=== PATIENT | male | born 1935 | race Caucasian/White ===

== ENCOUNTER → 2019-01-01 | Outpatient (CLI) | payer MEDICARE | END | disposition home or self-care (01) | LOC: RAH 10:45 | PROVIDERS: ATTEND Physical Medicine & Rehabilitation | DX: M51.36 Other intervertebral disc degeneration, lumbar region (principal); M46.96 Unspecified inflammatory spondylopathy, lumbar region; M48.061 Spinal stenosis, lumbar region without neurogenic claudication; M41.85 Other forms of scoliosis, thoracolumbar region | CPT/HCPCS: 72131 ==

== ENCOUNTER → 2020-05-05 | Outpatient (CLI) | payer MEDICARE | END | disposition home or self-care (01) | LOC: OIH 10:58 | PROVIDERS: ATTEND Internal Medicine | DX: M25.474 Effusion, right foot (principal); L03.031 Cellulitis of right toe; M20.11 Hallux valgus (acquired), right foot | CPT/HCPCS: 73660 ==

== ENCOUNTER → 2020-11-20 | Outpatient (CLI) | payer MEDICARE | END | disposition home or self-care (01) | LOC: RAH 14:23 | PROVIDERS: ATTEND Physical Medicine & Rehabilitation | DX: M19.011 Primary osteoarthritis, right shoulder (principal) | CPT/HCPCS: 73030 ==

== ENCOUNTER → 2021-05-04 | Outpatient (CLI) | payer MEDICARE | END | disposition home or self-care (01) | LOC: RAH 14:48 | PROVIDERS: ATTEND Physical Medicine & Rehabilitation | DX: M47.812 Spondylosis without myelopathy or radiculopathy, cervical region (principal); M48.02 Spinal stenosis, cervical region | CPT/HCPCS: 72125 ==

== ENCOUNTER 2023-05-02 14:20 | Observation (INO) | payer MEDICARE ==
[~2023-05-02] VITALS: Ht 170.2 cm; Wt 77.1 kg
[~2023-05-02 14:20] MED LIST: ALLO300T2 PO; APIX5TAB PO; ATOR40TA71 PO; BETH25 PO; CARV25TA PO; CHOL100020 PO; CYAN1000I IM; DIGO50SO2 PO; FERS325 PO; FOLI0.4T6 PO; FURO80TA87 PO; LEVO25CA4 PO; METO5TAB7 PO; MONT-39 PO; PANT40TA54 PO; POTA99CA PO; VENL-191 PO; VIT1CAPS5 PO; ZONI100C87 PO
[2023-05-02 15:00] LABS: BASOPHILS % (AUTO) 0.6 % (0.0-5.0); EOSINOPHILS % (AUTO) 2.5 % (0.0-8.0); LYMPHOCYTES % (AUTO) 7.5 % (21.0-51.0); MEAN CORPUSCULAR HEMOGLOBIN 32.7 pg (27.0-33.0); MEAN CORPUSCULAR HGB CONC 30.5 g/dL (32.0-36.0); MEAN CORPUSCULAR VOLUME 107.3 fL (79-99); MONOCYTES % (AUTO) 8.6 % (3.0-13.0); NEUTROPHILS % (AUTO) 80.2 % (40.0-77.0); PLATELET COUNT (AUTO) 155 K/uL (130-400); RED BLOOD CELL COUNT(AUTO) 2.05 MIL/uL (4.50-6.20); WHITE BLOOD COUNT (AUTO) 7.2 K/uL (4.8-10.8)
[2023-05-02 15:17] LABS: CREATININE 1.4 mg/dL (0.5-1.5); POTASSIUM 3.9 mmol/L (3.5-5.1)
[2023-05-02 15:24] LABS: ALBUMIN 2.9 g/dL (3.5-5.0); TOTAL PROTEIN, SERUM 6.3 g/dL (6.0-8.3)
[2023-05-02] MEDS ORDERED: FERS325 PO (15:29)
[2023-05-02] MEDS ORDERED: POTASSIUM CHLORIDE 10% ELIXIR 20 MEQ/15 ML UDCUP PO PRN (15:30)
[2023-05-02] MEDS ORDERED: ACETAMINOPHEN 325 MG TAB PO PRN ×2 (15:30)
[2023-05-02] MEDS ORDERED: MAG/ALUM/SIMETH 30 ML UDCUP PO PRN (15:30)
[2023-05-02] MEDS ORDERED: POTASSIUM CHLORIDE 20MEQ/100ML 100 ML IV PRN ×2 (15:30)
[2023-05-02] MEDS ORDERED: LACTULOSE 20 GM/30 ML UDCUP PO PRN (15:30)
[2023-05-02] MEDS ORDERED: ALLOPURINOL 300 MG TABLET PO SCH (15:30)
[2023-05-02] MEDS ORDERED: ONDANSETRON 4MG INJ IV PRN (15:30)
[2023-05-02] MEDS ORDERED: FURO80TA87 PO (15:31)
[2023-05-02] MEDS ORDERED: DIGO125T71 PO (15:31)
[2023-05-02] MEDS ORDERED: POTA-364 PO (15:32)
[2023-05-02] MEDS ORDERED: ISOS10TA8 PO (15:33)
[2023-05-02] MEDS ORDERED: CILO100T3 PO (15:35)
[2023-05-02] MEDS ORDERED: HYDR-4153 PO (15:36)
[2023-05-02] MEDS ORDERED: THIA100T91 PO (15:36)
[2023-05-02] MEDS ORDERED: PYRI100L2 PO (15:37)
[2023-05-02] MEDS: BETHANECHOL CHLORIDE 25 MG TABLET PO SCH (19:18)
[2023-05-02] MEDS: FUROSEMIDE 80 MG TABLET PO SCH (19:18)
[2023-05-02] MEDS: HYDRALAZINE 25MG TABLET PO SCH (19:18)
[2023-05-02] MEDS: APIXABAN 5 MG TABLET PO SCH (19:21)
[2023-05-02] MEDS: CARVEDILOL 25 MG TABLET PO SCH (19:22)
[2023-05-02] MEDS: ISOSORBIDE MONONITRATE 20 MG TABLET PO SCH (20:33)
[2023-05-02] MEDS ORDERED: ISOSORBIDE MONONITRATE 10 MG PO SCH (21:00)
[2023-05-02] MEDS ORDERED: CILOSTAZOL 100 MG TAB PO SCH (21:00)
[2023-05-02] MEDS ORDERED: METOLAZONE 5 MG PO PRN (21:00)
[2023-05-02] MEDS ORDERED: ZONISAMIDE 100 MG CAP PO SCH (21:00)
[2023-05-02] MEDS ORDERED: VENLAFAXINE HCL 75 MG TAB PO SCH (21:00)
[2023-05-02 21:58] VITALS: O2SAT 94
[2023-05-02 22:05] VITALS: BP 119/65; PULSE 81; RESP 18
[2023-05-03 01:56] LABS: HEMATOCRIT 24.9 % (42-54); MEAN CORPUSCULAR HGB CONC 30.9 g/dL (32.0-36.0); MEAN CORPUSCULAR VOLUME 103.3 fL (79-99); RED BLOOD CELL COUNT(AUTO) 2.41 MIL/uL (4.50-6.20); WHITE BLOOD COUNT (AUTO) 8.3 K/uL (4.8-10.8)
[2023-05-03 02:09] LABS: CREATININE 1.6 mg/dL (0.5-1.5); POTASSIUM 3.3 mmol/L (3.5-5.1)
[2023-05-03 04:00] VITALS: BP 126/75; PULSE 71; RESP 17
[2023-05-03] MEDS ORDERED: LEVOTHYROXINE 50 MCG TABLET PO SCH (06:30)
[2023-05-03 08:00] VITALS: BP 122/65; PULSE 70; RESP 17
[2023-05-03] MEDS ORDERED: DIGOXIN 125 MCG TABLET PO SCH (09:00)
[2023-05-03] MEDS ORDERED: PANTOPRAZOLE 40 MG TAB DR PO SCH (09:00)
[2023-05-03] MEDS ORDERED: FERROUS SULFATE 325 MG TABLET.DR PO SCH (09:00)
[2023-05-03] MEDS ORDERED: NON-FORMULARY MEDICATION 1 EACH (Ferrous Sulfate 325 MG) PO SCH ×2 (09:00)
[2023-05-03] MEDS ORDERED: PYRIDOXINE HCL 50 MG TABLET PO SCH (09:00)
[2023-05-03] MEDS ORDERED: HOME MEDICATION 1 EACH PO SCH (09:00)
[2023-05-03] MEDS ORDERED: NON-FORMULARY MEDICATION 1 EACH (Levothyroxine Sodium (Levothyroxine) 50 MCG) PO SCH (09:00)
[2023-05-03] MEDS ORDERED: VENLAFAXINE HCL 75 MG TAB PO SCH (09:00)
[2023-05-03] MEDS ORDERED: PYRIDOXINE HCL 50 MG PO SCH (09:00)
[2023-05-03] MEDS ORDERED: FOLIC ACID 1000 MCG PO SCH (09:00)
[2023-05-03] MEDS ORDERED: THIAMINE HCL 100 MG TABLET PO SCH (09:00)
[2023-05-03] MEDS ORDERED: ATORVASTATIN 40 MG TABLET PO SCH (09:00)
[2023-05-03] MEDS: HYDRALAZINE 25MG TABLET PO SCH (10:19)
[2023-05-03] MEDS: BETHANECHOL CHLORIDE 25 MG TABLET PO SCH (10:21)
[2023-05-03] MEDS: ISOSORBIDE MONONITRATE 20 MG TABLET PO SCH (10:21)
[2023-05-03] MEDS: APIXABAN 5 MG TABLET PO SCH (10:22)
[2023-05-03] MEDS: CARVEDILOL 25 MG TABLET PO SCH (10:22)
[2023-05-03] MEDS: FUROSEMIDE 80 MG TABLET PO SCH (10:23)
[2023-05-03] MEDS: KCL 20 MEQ ERTAB PO PRN ×2 (10:26→12:40)
[2023-05-03 11:21] VITALS: PULSE 75
[2023-05-03 11:45] VITALS: BP 115/65; PULSE 70; RESP 18
[2023-06-01] MEDS ORDERED: CYANOCOBALAMIN (VITAMIN B-12) 1000 MCG/ML 1ML VIAL IM SCH (09:00)
== END 2023-05-03 13:15 | disposition home or self-care (01) ==
LOC: EDH 14:20 → DIRECT 14:21 → 4DH 22:04
PROVIDERS: ADMIT Internal Medicine; ATTEND Internal Medicine
DX: D64.9 Anemia, unspecified (principal); I49.5 Sick sinus syndrome; I13.0 Hypertensive heart and chronic kidney disease with heart failure and stage 1 through stage 4 chronic kidney disease, or unspecified chronic kidney disease; I50.32 Chronic diastolic (congestive) heart failure; N18.31 Chronic kidney disease, stage 3a; G25.81 Restless legs syndrome; G40.209 Localization-related (focal) (partial) symptomatic epilepsy and epileptic syndromes with complex partial seizures, not intractable, without status epilepticus; G47.33 Obstructive sleep apnea (adult) (pediatric); E78.2 Mixed hyperlipidemia; F03.A3 Unspecified dementia, mild, with mood disturbance; F32.1 Major depressive disorder, single episode, moderate; I25.10 Atherosclerotic heart disease of native coronary artery without angina pectoris; I48.20 Chronic atrial fibrillation, unspecified; G99.2 Myelopathy in diseases classified elsewhere; K22.4 Dyskinesia of esophagus; K31.84 Gastroparesis; M48.061 Spinal stenosis, lumbar region without neurogenic claudication; N31.9 Neuromuscular dysfunction of bladder, unspecified; N13.8 Other obstructive and reflux uropathy; N40.1 Benign prostatic hyperplasia with lower urinary tract symptoms; Z79.01 Long term (current) use of anticoagulants; Z79.02 Long term (current) use of antithrombotics/antiplatelets; Z87.891 Personal history of nicotine dependence; Z90.79 Acquired absence of other genital organ(s); Z95.0 Presence of cardiac pacemaker; Z95.1 Presence of aortocoronary bypass graft; Z98.61 Coronary angioplasty status; Z79.899 Other long term (current) drug therapy; Z98.890 Other specified postprocedural states
CPT/HCPCS: 36430; 80053; 85025; 86850; 86900; 86901; 86923; 36415 ×2; 93005; 80048; 85027; G0378 ×18; G0379; P9016